=== PATIENT | male | born 1985 | race Caucasian/White ===

== ENCOUNTER 2018-04-14 14:15 | Emergency (ER) | payer OTHER ==
[2018-04-14 14:19] VITALS: BP 122/79
--- NOTE | 2018-04-14 14:46 | EDPHY ---
H & P Smoking Status: Former smoker Time Seen by Provider: 04/14/18 14:44 HPI/ROS: CHIEF COMPLAINT: Right thumb laceration HISTORY OF PRESENT ILLNESS: Patient was working with a table saw at and bumped his right thumb onto the saw. He denies any numbness or loss of range of motion. This happened just prior to arrival. His tetanus is up-to-date. Takes no blood thinners. He denies other injuries. REVIEW OF SYSTEMS: Constitutional: No fever, no chills. Eyes: No discharge. ENT: No sore throat. Cardiovascular: No chest pain, no palpitations. Respiratory: No cough, no shortness of breath. Gastrointestinal: No abdominal pain, no vomiting. Genitourinary: No hematuria. Musculoskeletal: No back pain. Skin: No rashes. Neurological: No headache. (Gordo Ugarte) Past Medical/Surgical History: General Appearance: Alert and no distress. Eyes: Pupils equal and round no injection. Respiratory: Chest is nontender, lungs are clear to auscultation. Cardiac: regular rate and rhythm. Gastrointestinal: Abdomen is soft and nontender, no masses, bowel sounds normal. Musculoskeletal: Neck is supple and nontender. Extremities have full range of motion and are nontender. Skin: No rashes or lesions. (Gordo Ugarte) Physical Exam: General Appearance: Alert and no distress. Eyes: Pupils equal and round no injection. Respiratory: Chest is nontender, lungs are clear to auscultation. Cardiac: regular rate and rhythm. Gastrointestinal: Abdomen is soft and nontender, no masses, bowel sounds normal. Musculoskeletal: Neck is supple and nontender. Extremities have full range of motion and are nontender. Skin: No rashes. 1 cm the skin laceration over the interphalangeal joint of the right thumb extensor aspect. Full range of motion of the thumb neurovascular intact distally. No evidence of tendon or joint capsule injury. (Gordo Ugarte) Constitutional: Initial Vital Signs Temperature (C) 36.6 C 04/14/18 14:16 Heart Rate 72 04/14/18 14:16 Respiratory Rate 18 04/14/18 14:16 Blood Pressure 122/79 H 04/14/18 14:16 O2 Sat (%) 98 04/14/18 14:16 O2 Delivery Mode Room Air Allergies/Adverse Reactions: No Known Allergies Allergy (Unverified 04/14/18 14:16) Home Medications: Medication Instructions Recorded NK [No Known Home Meds] 04/14/18 Medical Decision Making Procedures: Procedure: Laceration repair. Verbal consent was obtained from the patient. The finger laceration laceration on the right great thumb was anesthetized in the usual fashion. The wound was irrigated, draped and explored to its base. There were no deep structures involved. No tendon injury was identified. The wound was repaired with 5.0 nylon with 6 sutures. The wound repair was well approximated The procedure was performed by myself. (Gordo Ugarte) ED Course/Re-evaluation: I did not see this patient while he was in the emergency department. However his care was discussed with the PA while the patient was in the department. I agree with treatment plan and management (Donte Dudley) Differential Diagnosis: Tendon injury, fracture, joint capsule injury, foreign body (Gordo Ugarte) - Data Points Medications Given: Discontinued Medications Tetanus/Diphtheria Toxoids Adsorbed (Tetanus-Diphtheria Grifols) 0.5 ml IM .ONCE ONE Stop: 04/14/18 15:21 Last Admin: 04/14/18 15:31 Dose: 0.5 ml Departure - Departure Disposition: Home, Routine, Self-Care Clinical Impression: Finger laceration Condition: Good Instructions: Laceration (ED) Additional Instructions: Follow-up in 7-10 days for suture removal Referrals: NONE *PRIMARY CARE P,. [Primary Care Provider] - As per Instructions
[2018-04-14] MEDS ORDERED: TETANUS, DIPHTHERIA TOX (7YR+) 0.5 ML INJ IM ONE (15:20)
== END 2018-04-14 15:44 | disposition home or self-care (01) ==
PROC: 0HQFXZZ Repair Right Hand Skin, External Approach (ICD-10-PCS; principal; 2018-04-14)
DX: S61.011A Laceration without foreign body of right thumb without damage to nail, initial encounter (principal); W31.2XXA Contact with powered woodworking and forming machines, initial encounter; Y99.8 Other external cause status; Z23 Encounter for immunization